=== PATIENT | female | born 1955 | race Hispanic/Latino ===

== ENCOUNTER 2018-07-25 05:38 | Day surgery (SDC) | payer BC ==
[2018-07-25] VITALS (8 sets, daily range): BP systolic 103–138; BP diastolic 60–74
[~2018-07-25] VITALS: Ht 152.4 cm; Wt 66.5 kg
[~2018-07-25 05:38] MED LIST: IOHEXOL-350 50ML VIAL IV ONE
[2018-07-25] MEDS ORDERED: SODIUM CHLORIDE 0.9% 1000ML 1,000 ML IV ONE (05:49)
[2018-07-25] MEDS ORDERED: PROPOFOL 10 MG/ML 20ML VIAL IV ONE (07:47)
[2018-07-25] MEDS ORDERED: INDOMETHACIN 50 MG SUPP.RECT RC SCH (08:00)
== END 2018-07-25 09:15 | disposition home or self-care (01) ==
LOC: DAH 05:38 → ENDO 05:38
PROVIDERS: ATTEND Internal Medicine
DX: K80.70 Calculus of gallbladder and bile duct without cholecystitis without obstruction (principal); K83.8 Other specified diseases of biliary tract; E66.9 Obesity, unspecified; Z90.49 Acquired absence of other specified parts of digestive tract; Z68.27 Body mass index [BMI] 27.0-27.9, adult; Z79.899 Other long term (current) drug therapy; Z98.890 Other specified postprocedural states
CPT/HCPCS: 43260; 74330; A4606; C1769; C1773; J2704; J7030; Q9967